=== PATIENT | male | born 1980 | race Caucasian/White ===

== ENCOUNTER 2018-08-08 13:35 | Emergency (ER) | payer MEDICAID ==
[~2018-08-08] VITALS: Ht 167.6 cm; Wt 72.7 kg
[2018-08-08 13:54] VITALS: BP 140/90
== END 2018-08-08 15:04 | disposition left against medical advice (07) ==
LOC: EMS 13:40
DX: S51.832A Puncture wound without foreign body of left forearm, initial encounter (principal); W46.0XXA Contact with hypodermic needle, initial encounter; Y93.89 Activity, other specified; Y92.89 Other specified places as the place of occurrence of the external cause; Y99.8 Other external cause status; Z53.21 Procedure and treatment not carried out due to patient leaving prior to being seen by health care provider

== ENCOUNTER 2018-08-08 15:50 | Emergency (ER) | payer MEDICAID ==
[~2018-08-08] VITALS: Ht 167.6 cm; Wt 72.7 kg
[2018-08-08] MEDS ORDERED: IBUPROFEN 800 MG TABLET PO ONE (18:30)
[2018-08-08 18:52] VITALS: BP 130/68
== END 2018-08-08 18:52 | disposition home or self-care (01) ==
LOC: EMS 15:50
DX: S50.851A Superficial foreign body of right forearm, initial encounter (principal); F17.210 Nicotine dependence, cigarettes, uncomplicated; F11.90 Opioid use, unspecified, uncomplicated; W45.8XXA Other foreign body or object entering through skin, initial encounter; Y93.89 Activity, other specified; Y92.89 Other specified places as the place of occurrence of the external cause; Y99.8 Other external cause status
CPT/HCPCS: 99406